=== PATIENT | female | born 1980 | race Caucasian/White ===

== ENCOUNTER 2017-12-25 09:16 | Emergency (ER) | payer OTHER, MEDICAID, SELFPAY ==
[2017-12-25 09:26] VITALS: BP 137/85; PULSE 80; RESP 16; TEMP 37; O2SAT 98; BMI 50.5
--- NOTE | 2017-12-25 09:33 | ED.UPPEXIN ---
HPI - Extremity Injury (Upper) General Chief Complaint: Extremity Injury, Upper Stated Complaint: hurt left elbow/ pain for 2 days Time Seen by Provider: 12/25/17 09:20 Source: patient Mode of arrival: ambulatory Limitations: no limitations History of Present Illness HPI narrative: 37-year-old female presents with left elbow pain x2 days. She is in the process of moving and felt a pop in her elbow when lifting a heavy object. She now has pain with range of motion but denies numbness, or weakness. She denies any direct trauma. MD complaint: injury to: left Onset (ago): day(s) Other Extremity Injury: Left: elbow Relieving factors: immobilization Exacerbating factors: movement of extremity Associated symptoms: heard/felt popping sensation Treatments prior to arrival: NSAIDS Related Data Home Medications Medication Instructions Recorded Confirmed acetaminophen 325 mg PO Q4-6H PRN 12/25/17 12/25/17 Previous Rx's Medication Instructions Recorded ketorolac 10 mg PO Q6H PRN 2 Days tab 12/25/17 Allergies Allergy/AdvReac Type Severity Reaction Status Date / Time hydrocodone [HYDROCODONE] Allergy Mild ITCHINESS Unverified 10/17/17 11:54 Review of Systems Review of Systems All systems reviewed & are unremarkable except as noted in HPI and below Constitutional Denies chills, Denies fever(s), Denies lethargy and Denies weakness Eyes Denies change in vision, Denies eye discharge, Denies irritation and Denies loss of vision ENT Ears, Nose, Mouth, and Throat: Denies change in voice, Denies neck pain and Denies sore throat Cardiovascular Denies chest pain, Denies irregular heart rhythm, Denies lightheadedness, Denies palpitations, Denies dyspnea, Denies dyspnea on exertion and Denies orthopnea Respiratory Denies cough, Denies dyspnea, Denies dyspnea on exertion and Denies wheezing Gastrointestinal Gastrointestinal: Denies abdominal pain, Denies change in bowel habits, Denies diarrhea, Denies nausea and Denies vomiting Genitourinary Denies hematuria, Denies flank pain, Denies urinary incontinence and Denies urinary urgency Musculoskeletal Reports limited range of motion, Denies neck pain, Reports radiating pain into limb and Reports tingling Integumentary/Breasts Denies pruritus, Denies erythema, Denies rash and Denies wounds Neurologic Denies confusion, Denies loss of vision, Reports tingling and Denies weakness Psychiatric Denies anxiety, Denies confusion, Denies depression, Denies homicidal ideation and Denies suicidal ideation Endocrine Denies palpitations Hematologic/Lymphatic Denies easy bruising Allergic/Immunologic Denies wheezing [facility] Surgical History Status post delivery (07/18/10) Status post delivery (03/29/12) Family History Grandmother Diabetes mellitus Hypertension High cholesterol Mental health problem Mother Hypertension Mental health problem Grandmother Cancer Hypertension Mental health problem Social History Smoking Status: Never smoker Exam Narrative Exam Narrative: Pleasant 37-year-old female in no obvious distress Initial Vital Signs Initial Vital Signs: Vital Signs Temperature 98.6 F 12/25/17 09:26 Pulse Rate 80 12/25/17 09:26 Respiratory Rate 16 12/25/17 09:26 Blood Pressure 137/85 H 12/25/17 09:26 Pulse Oximetry 98 12/25/17 09:26 Const General: cooperative and well developed Nutritional Appearance: well nourished Orientation: alert, awake, oriented x3 and not confused HENND Head: normocephalic and atraumatic Ears: external ears normal and TM's normal bilaterally Nose: external nose normal and No nasal discharge Face and sinus: sinuses nontender, face symmetric, no sinus tenderness and No dry mucous membranes Mouth: oral mucosae normal and moist mucous membranes Teeth and gingiva: dentition normal Throat: tonsils normal and uvula midline Resp Effort & Inspection: normal respiratory effort, able to speak in complete sentences, no respiratory distress and no use of accessory muscles Auscultation: clear to auscultation bilaterally, no rales, no rhonchi and no wheezes Cardio Rate: regular rate Rhythm: regular rhythm Heart Sounds: no click, no gallops, no murmurs and no rubs Pulses: normal peripheral pulses Neuro General: alert, awake and oriented x3 Cognition: normal cognition Speech: speech normal Gait: normal gait Extrem Left upper extremity: full ROM and elbow/forearm (Pain over lateral elbow at insertion of extensor wad, no weakness. Cap refill less than 2 sec) Procedures Orthopedic Splinting/Casting Injury #1: Side: left Upper Extremity Injury Location: elbow Upper Extremity Immobilizer: sling/shoulder immobilizer Course Orders Ordered: Discontinued Medications Ketorolac Tromethamine (Toradol) 30 mg IM NOW ONE Stop: 12/25/17 09:33 Last Admin: 12/25/17 09:37 Dose: 30 mg Vital Signs - 8 hr 12/25/17 09:26 Temperature 98.6 F Pulse Rate 80 Respiratory Rate 16 Blood Pressure 137/85 H Pulse Oximetry 98 Discharge Plan Departure Patient Disposition: Home, Self-Care Clinical Impression: Elbow sprain Discharge Date/Time: 12/25/17 10:17 Interventions: ED Discharge Assessment Last Done: 12/25/17 10:11 Instructions: DI for Elbow Sprain Activity Restrictions/Additional Instructions: *You have been diagnosed with [ left elbow sprain ] *What to do: *Take medications as directed and wear sling for comfort for the next few days *Follow up with your primary care provider in 2-3 days *Return to ER if you should have any new, worsening or concerning symptoms Prescriptions: New ketorolac 10 mg tablet 10 mg PO Q6H PRN (Reason: pain) 2 Days RF: 0 No Action acetaminophen 325 mg Tablet 325 mg PO Q4-6H PRN (Reason: Pain, Mild) RF: 0
[2017-12-25] MEDS: KETOROLAC 60 MG/2 ML VIAL 30 MG IM (09:37)
[2017-12-25 10:13] VITALS: BP 147/91; PULSE 91; RESP 18; O2SAT 98
== END 2017-12-25 10:17 | disposition home or self-care (01) ==
PROVIDERS: Emergency Provider Emergency Medicine; Family Provider Family Medicine; PCP Family Medicine
DX: M25.529 Pain in unspecified elbow (principal)
CPT/HCPCS: 96372; 99282; 99283; J1885

== ENCOUNTER 2017-12-26 18:08 | Emergency (ER) | payer OTHER, MEDICAID, SELFPAY ==
[2017-12-26 18:12] VITALS: BP 155/106; PULSE 84; RESP 20; TEMP 36.4; O2SAT 98; BMI 50.5
--- NOTE | 2017-12-26 20:10 | ED.UPPEXIN ---
HPI - Extremity Injury (Upper) General Chief Complaint: Extremity Injury, Upper Stated Complaint: PAIN MEDS NOT STRONG ENOUGH Time Seen by Provider: 12/26/17 19:59 Source: patient Mode of arrival: ambulatory Limitations: no limitations History of Present Illness HPI narrative: Patient is a 37-year-old female who presents with left elbow pain. She was seen evaluated yesterday. She her elbow 2 days ago pulling a mattress she said she felt something pop. She did not fall. She has been given Toradol pills but has not gotten any relief. She denies any shoulder pain though it does radiate up to her shoulder. She sometimes has numbness tingling in her left wrist. His Related Data Home Medications Medication Instructions Recorded Confirmed acetaminophen 325 mg PO Q4-6H PRN 12/25/17 12/25/17 Previous Rx's Medication Instructions Recorded ketorolac 10 mg PO Q6H PRN 2 Days tab 12/25/17 meloxicam [Mobic] 7.5 mg PO DAILY PRN #14 tab 12/26/17 tramadol 50 mg PO Q4-6H PRN #10 tab 12/26/17 Allergies Allergy/AdvReac Type Severity Reaction Status Date / Time hydrocodone [HYDROCODONE] Allergy Mild ITCHINESS Verified 12/26/17 18:19 Review of Systems Review of Systems GENERAL: Denies chills,fever HEENT: Denies throat pain RESPIRATORY: Denies dyspnea, cough, wheezing CARDIOVASCULAR: Denies chest pain, palpitations GASTROINTESTINAL: Denies nausea, vomiting MUSCULOSKELETAL: See HPI SKIN: No rash, no laceration, no pruritus NEUROLOGIC: Denies weakness, dizziness, headache, numbness 8 point review of systems is negative except for those stated above and HPI [facility] Surgical History Status post delivery (07/18/10) Status post delivery (03/29/12) Family History Grandmother Diabetes mellitus Hypertension High cholesterol Mental health problem Mother Hypertension Mental health problem Grandmother Cancer Hypertension Mental health problem Social History Smoking Status: Never smoker Exam Initial Vital Signs Initial Vital Signs: Vital Signs Temperature 97.5 F L 12/26/17 18:12 Pulse Rate 84 12/26/17 18:12 Respiratory Rate 20 12/26/17 18:12 Blood Pressure 155/106 H 12/26/17 18:12 Pulse Oximetry 98 12/26/17 18:12 GENERAL: Well-appearing, well-nourished and in no acute distress. CARDIOVASCULAR: peripheral pulses in tact, cap refill <2 sec RESPIRATORY: No respiratory distress, speaks in full sentences without difficulty EXTREMITIES: Normal range of motion, no clubbing or edema. Neurovascularly intact -left arm elbow tender to touch no erythema no swelling decreased range of motion due to pain distal radial pulse intact. NEUROLOGICAL: Cranial nerves II through XII grossly intact. Normal gait and speech. SKIN: Warm, dry, no petechiae, no rashes or lesions. Course Orders Ordered: ED Orders 12/26/17 20:11 XR elbow LT min 3V Stat Discontinued Medications Tramadol HCl (Ultram 50mg Prepack) 1 bottle MISC SEEINSTR ONE Stop: 12/26/17 20:53 Last Admin: 12/26/17 21:03 Dose: 1 bottle Vital Signs - 8 hr 12/26/17 18:12 Temperature 97.5 F L Pulse Rate 84 Respiratory Rate 20 Blood Pressure 155/106 H Pulse Oximetry 98 MDM - Extremity Injury (Upper) Imaging Data Left elbow: Radiologist's impression: PROCEDURE: XR ELBOW LT MIN 3V INDICATIONS: injury a few days ago worsening pain TECHNIQUE: 3 vague calcifications overlying the lateral aspect of the elbow are noted. There mild degenerative changes of the elbow. views of the elbow were acquired. COMPARISON: None. FINDINGS: Bones: No fractures or dislocations. No suspicious bony lesions. Soft tissues: No elbow joint effusion. No suspicious soft tissue calcifications. IMPRESSION: 1. No acute fracture of the left elbow. 2. The calcifications overlying the radial aspect of the elbow likely are related to previous common extensor tendon injury. Dictated by: Fermin Moy M.D. on 12/26/2017 at 20:29 Discharge Plan Departure Patient Disposition: Home, Self-Care Clinical Impression: Other sprain of left elbow, initial encounter Discharge Date/Time: 12/26/17 21:07 Interventions: ED Discharge Assessment Last Done: 12/26/17 21:07 Instructions: DI for Elbow Sprain Activity Restrictions/Additional Instructions: *You have been diagnosed with left elbow sprain *What to do: Try to increase activity as tolerated, ice 20 min at a time, may require an MRI or Orthopedics consultation if still having pain at least discuss this with her primary care provider *Continue to take medications as directed -stop taking Toradol -start taking Mobic once a day which is anti inflammatory and should not be combined with other NSAIDs such as naproxen, ibuprofen, Toradol etc -tramadol 1-2 tablets every 6 hr if needed for severe pain *Follow up with your primary care provider in 2-3 days *Return to ER if you should have fever, increasing pain, redness, weakness or any new, worsening or concerning symptoms CONTROLLED SUBSTANCE DISCHARGE (Narcotoic/benzodiazepine/Flexeril/Phenergan) 1. You have been prescribed narcotic medications, it does have acetaminophen/Tylenol/paracetamol in it so do not take extra Tylenol or Tylenol containing products 2. Please understand that we cannot provide further refills of narcotics, benzodiazepines or controlled substances through the ED and her pain management will need to be through your provider. 3. While on these medications you cannot drive or operate heavy machinery. 4. You cannot sign legal documents or perform any duties such as this. 5. As long as you're taking opiate pain medications he should also be taking a stool softener such as Colace, Dulcolax, MiraLAX or prune juice, to help avoid constipation. Prescriptions: New tramadol 50 mg tablet 50 mg PO Q4-6H PRN (Reason: pain) Qty: 10 RF: 0 meloxicam [Mobic] 7.5 mg tablet 7.5 mg PO DAILY PRN (Reason: pain) Qty: 14 RF: 0 No Action ketorolac 10 mg tablet 10 mg PO Q6H PRN (Reason: pain) 2 Days RF: 0 acetaminophen 325 mg Tablet 325 mg PO Q4-6H PRN (Reason: Pain, Mild) RF: 0 Referrals: Kate Medeiros MD [Primary Care Provider] -
[2017-12-26] MEDS: TRAMADOL 50 MG PREPACK 1 BOTTLE MISC (21:03)
== END 2017-12-26 21:07 | disposition home or self-care (01) ==
PROVIDERS: Emergency Provider Emergency Medicine; Family Provider Family Medicine; PCP Family Medicine
DX: S53.402A Unspecified sprain of left elbow, initial encounter (principal)
CPT/HCPCS: 73080; 99282; 99283